=== PATIENT | female | born 1990 | race Caucasian/White ===

== ENCOUNTER 2017-01-02 15:29 | Inpatient (IN) | payer OTHER ==
[2017-01-02 18:02] LABS: Hematocrit 36 % (35-47); Hemoglobin 11.7 g/dl (12.0-16.0); Mean Corpuscular HGB Conc 33 g/dl (31-36); Mean Corpuscular Hemoglobin 29 pg (27-31); Mean Corpuscular Volume 87 fL (80-97); Mean Platelet Volume 9 um3 (7.4-10.4); Red Cell Distribution Width 14 % (10.5-15); White Blood Count 22.6 10^3/ul (3.5-10.8)
[2017-01-02] MEDS: Calcium Carbonate CHEW TAB* 500 MG (TUMS) PO PRN (21:32)
[2017-01-02] MEDS ORDERED: Oxytocin in LR* 20 UNITS/1,000 ML BAG IVPB SCH (22:00)
[2017-01-02 22:28] LABS: Albumin 3.2 g/dL (3.2-5.2); BUN/Creatinine Ratio 11.7 (8-20); Calcium 9.7 mg/dL (8.6-10.3); EGFR African American 155.4 (>60); EGFR Non-African American 120.8 (>60); Globulin 2.5 g/dL (2-4); Potassium 4.1 mmol/L (3.5-5.0); Total Bilirubin 0.3 mg/dL (0.2-1.0); Total Protein 5.7 g/dL (6.4-8.9)
[2017-01-02] MEDS ORDERED: OBEPIDURAL* 250 ML ONE (22:44)
[2017-01-02] MEDS ORDERED: Sodium Citrate/Citric Acid* 15 ML UDC PO PRN (23:36)
[2017-01-02] MEDS ORDERED: Phenylephrine IV* 40 MCG/ML 10 ML SYRINGE IV PUSH PRN (23:36)
[2017-01-02] MEDS ORDERED: Famotidine TAB* 20 MG PO PRN (23:36)
[2017-01-02] MEDS ORDERED: OBEPIDURAL* 250 ML EPIDURAL SCH (23:45)
[2017-01-03] MEDS ORDERED: Acetaminophen TAB* 325 MG PO PRN (02:41)
[2017-01-03] MEDS ORDERED: Dibucaine 1% 28.35 GM TUBE PR PRN (02:41)
[2017-01-03] MEDS ORDERED: Glycerin ADULT SUPP PR PRN (02:41)
[2017-01-03] MEDS ORDERED: Witch Hazel PAD* JAR TOPICAL PRN (02:41)
[2017-01-03] MEDS ORDERED: Oxytocin in LR* 20 UNITS/1,000 ML BAG IVPB SCH (03:00)
[2017-01-03] MEDS: Ibuprofen TAB* 600 MG PO PRN ×3 (03:44→23:07)
[2017-01-03] MEDS: Docusate CAP* 100 MG PO SCH ×3 (08:44→22:02)
[2017-01-03] MEDS: Simethicone CHEW TAB* 80 MG PO SCH ×3 (08:44→20:35)
[2017-01-03] MEDS ORDERED: Varicella Virus Vaccine Live* 0.5 ML VIAL SUBCUT ONE (09:00)
--- NOTE | 2017-01-03 21:52 | PTEDU ---
Patient Name: ELAINA MANDUJANO ELAINA MANDUJANO selected video: Never Ever Shake a Baby to view on 01/03/2017 at 9:51:30 PM from [facility] [place] [id number]
[2017-01-03] MEDS: Calcium Carbonate CHEW TAB* 500 MG (TUMS) PO PRN (23:07)
[2017-01-04 08:29] LABS: Hematocrit 35 % (35-47); Hemoglobin 11.7 g/dl (12.0-16.0); Mean Corpuscular HGB Conc 33 g/dl (31-36); Mean Corpuscular Hemoglobin 29 pg (27-31); Mean Corpuscular Volume 88 fL (80-97); Mean Platelet Volume 9 um3 (7.4-10.4); Red Blood Count 4.04 10^6/ul (4.0-5.4); Red Cell Distribution Width 14 % (10.5-15); White Blood Count 18.5 10^3/ul (3.5-10.8)
[2017-01-04] MEDS ORDERED: Ferrous Gluconate TAB* 324 MG TAB PO SCH (09:00)
[2017-01-04] MEDS: Docusate CAP* 100 MG PO SCH ×2 (09:00→14:00)
[2017-01-04 11:48] LABS: BUN/Creatinine Ratio 17.5 (8-20); Calcium 9.4 mg/dL (8.6-10.3); EGFR African American 146.9 (>60); EGFR Non-African American 114.2 (>60); Globulin 3.1 g/dL (2-4); Potassium 4.3 mmol/L (3.5-5.0); Total Bilirubin 0.2 mg/dL (0.2-1.0); Total Protein 6.1 g/dL (6.4-8.9)
[2017-01-04 12:10] VITALS: BP 130/81
[2017-01-04] MEDS: Ibuprofen TAB* 600 MG PO PRN (13:46)
== END 2017-01-04 16:23 | disposition home or self-care (01) | DRG 560 ==
LOC: MCHOBOUT 15:29 → MCHOB 15:56
PROVIDERS: ADMIT Midwife; ATTEND Midwife
PROC: 10E0XZZ Delivery of Products of Conception, External Approach (ICD-10-PCS; principal; 2017-01-03)
DX: O14.94 Unspecified pre-eclampsia, complicating childbirth (principal); O99.344 Other mental disorders complicating childbirth; F32.9 Major depressive disorder, single episode, unspecified; O99.334 Smoking (tobacco) complicating childbirth; F17.210 Nicotine dependence, cigarettes, uncomplicated; Z3A.38 38 weeks gestation of pregnancy; Z37.0 Single live birth
CPT/HCPCS: 36415; 80053; 85025; 86850; 86900; 86901; A9270-GY

== ENCOUNTER 2018-06-26 09:49 | Emergency (ER) | payer OTHER ==
[2018-06-26] MEDS ORDERED: Dexamethasone IV* 4 MG/ML 1 ML (4 MG) IV SLOW PU ONE (10:17)
[2018-06-26] MEDS ORDERED: NS 0.9% 1000 ML* 1,000 ML IV ONE (10:17)
[2018-06-26] MEDS ORDERED: diPHENhydraMINE IV* 25 MG in NS 0.9% 50 ML* 50 ML IVPB ONE (10:17)
[2018-06-26] MEDS ORDERED: PROCHLORPERAZINE INJ 5 MG/ML 2 ML VIAL IV ONE (10:18)
--- NOTE | 2018-06-26 10:22 | ED ---
Headache - HPI Summary HPI Summary: Pt. is a 28 y.o female who presents to the ER for a h/a that started when she woke up early this morning. Pt. states is progressively got worse through the day. Pt. states she has a hx of migraines but h/a today is worse and different than normal. Pt. feels this is the worst h/a of her life. Associated sxs of N/V , photophobia. She denies recent illness, fever, neck pain. Symptoms are moderate in severity. Lights and noise make sxs worse. Nothing makes sxs better. Denies injury. Currently taking propranolol and Lexapro. - History Of Current Complaint Chief Complaint: EDHeadache Stated Complaint: MIGRAINE Time Seen by Provider: 06/26/18 10:08 Hx Obtained From: Patient - Allergies/Home Medications Allergies/Adverse Reactions: Allergies Allergy/AdvReac Type Severity Reaction Status Date / Time No Known Allergies Allergy Verified 01/02/17 16:01 Home Medications: Home Medications Escitalopram (NF) [Lexapro 20 mg (NF)] 20 mg PO DAILY 06/26/18 [History Confirmed 06/26/18] Propranolol TAB* [Inderal TAB*] 20 mg PO BID 06/26/18 [History Confirmed ] PMH/Surg Hx/FS Hx/Imm Hx Previously Healthy: Yes Cardiovascular History: Reports: Hx Hypertension Infectious Disease History: No Infectious Disease History: Denies: Traveled Outside the [place] in Last 30 Days - Family History Known Family History: Positive: Other - noncontributory - Social History Occupation: Employed Full-time Lives: With Family Alcohol Use: None Substance Use Type: Reports: Marijuana Smoking Status (MU): Heavy Every Day Tobacco Smoker Type: Cigarettes Amount Used/How Often: 1-2 cigarettes/day Have You Smoked in the Last Year: Yes Review of Systems Constitutional: Negative Negative: Fever, Chills Positive: Photophobia ENT: Negative Cardiovascular: Negative Respiratory: Negative Positive: Vomiting, Nausea Musculoskeletal: Negative Skin: Negative Positive: Headache. Negative: Weakness, Paresthesia, Numbness All Other Systems Reviewed And Are Negative: Yes Physical Exam Triage Information Reviewed: Yes Vital Signs On Initial Exam: Initial Vitals Temp Pulse Resp BP Pulse Ox 97.0 F 75 22 136/86 100 06/26/18 09:54 06/26/18 09:54 06/26/18 09:54 10/26/18 09:54 06/26/18 09:54 Vital Signs Reviewed: Yes Appearance: Positive: Pain Distress - Patient sitting up on bed with emesis bag in her hand. Appears uncomfortable but nontoxic. Significant other present. Eyes: Positive: Normal, EOMI, JUANI, Conjunctiva Clear Neck: Positive: Supple, Nontender. Negative: Nuchal Rigidity Respiratory/Lung Sounds: Positive: Clear to Auscultation, Breath Sounds Present Cardiovascular: Positive: Normal, RRR Musculoskeletal: Positive: Normal, Strength/ROM Intact Neurological: Positive: Normal, CN Intact II-III Psychiatric: Positive: Affect/Mood Appropriate - Michael Coma Scale Best Eye Response: 4 - Spontaneous Best Motor Response: 6 - Obeys Commands Best Verbal Response: 5 - Oriented Coma Scale Total: 15 Diagnostics - Vital Signs Vital Signs Temp Pulse Resp BP Pulse Ox 06/26/18 10:04 92 100 06/26/18 09:54 97.0 F 81 22 136/86 100 - Laboratory Lab Statement: Any lab studies that have been ordered have been reviewed, and results considered in the medical decision making process. Headache Course/Dx - Course Course Of Treatment: Patient presenting with worsening migraine headache. Patient states headache today is different and worse than her typical headaches. She is vomiting and has photophobia. He is afebrile with stable vital signs. She is no neurological deficits on exam. Given changing and headache we'll obtain CT scan. Additionally given IV fluids, Compazine, Benadryl and Decadron in the meantime. CT scan is negative for acute findings, reading per radiology. Patient is feeling better and is requesting to leave the ER. She took her IV out herself. Patient standing in the hallway and feels better. Discharged home. Follow-up with neurology as scheduled. We'll return to the ear symptoms change or worsen. - Diagnoses Differential Diagnosis/HQI/PQRI: Subdural Hematoma, Meningitis, Migraine, Sinus Headache, Tension Headache Provider Diagnoses: Cephalalgia Discharge - Sign-Out/Discharge Documenting (check all that apply): Patient Departure - Discharge Plan Condition: Good Disposition: HOME Patient Education Materials: Migraine Headache (ED) Referrals: Foster Anderson PA [Primary Care Provider] - Additional Instructions: Follow up with PCP and neurology as scheduled Return to ER if symptoms change or worsen - Billing Disposition and Condition Condition: GOOD Disposition: Home
[2018-06-26] MEDS ORDERED: Dexamethasone IV* 4 MG/ML 1 ML (4 MG) ONE (11:18)
[2018-06-26] MEDS ORDERED: diPHENhydraMINE PO* 25 MG PO ONE ×3 (11:28→12:00)
[2018-06-26] MEDS ORDERED: diPHENhydraMINE PO* 25 MG ONE (11:29)
--- NOTE | 2018-06-26 11:59 | RAD ---
HISTORY: h/a COMPARISONS: None TECHNIQUE: Multiple contiguous axial CT scans were obtained of the head without intravenous contrast. FINDINGS: HEMORRHAGE/INFARCT: There is no hemorrhage or acute infarct. MASSES/SHIFT: There is no mass or shift. EXTRA-AXIAL SPACES: There are no extra-axial fluid collections. SULCI AND VENTRICLES: The sulci and ventricles are normal in size and position for the patient's stated age. CEREBRUM: There are no focal parenchymal abnormalities. BRAINSTEM: There are no focal parenchymal abnormalities. CEREBELLUM: There are no focal parenchymal abnormalities. VESSELS: The vessels are grossly normal. PARANASAL SINUSES: The paranasal sinuses are clear. ORBITS: The orbits are unremarkable. BONES AND SOFT TISSUE: No bone or soft tissue abnormalities are noted. OTHER: None IMPRESSION: NO ACUTE INTRACRANIAL PATHOLOGY.
[2018-06-26 12:49] VITALS: BP 0/0
== END 2018-06-26 12:48 | disposition home or self-care (01) ==
LOC: ED 09:49
DX: R51 Headache (principal); R11.10 Vomiting, unspecified; H53.149 Visual discomfort, unspecified; I10 Essential (primary) hypertension; F17.210 Nicotine dependence, cigarettes, uncomplicated
CPT/HCPCS: 70450; 96374; 96375; 99282; A9270-GY; J0780; J1100

== ENCOUNTER 2018-08-05 12:11 | Emergency (ER) | payer OTHER ==
[2018-08-05] MEDS ORDERED: Ketorolac INJ* 30 MG/ML 1 ML VIAL IV PUSH ONE (12:27)
--- NOTE | 2018-08-05 12:46 | ED ---
GI/ HPI - HPI Summary HPI Summary: Patient is a 28 y/o F presenting to ED with complaints of left flank pain. She states that she was diagnosed with UTI two days ago and that she was advised to come to ED to be evaluated for possible kidney stone. However, she states home circumstances prevented this. Patient arrives today noting increased left flank pain and nausea. She denies vomiting. Pain is characterized as spasms. PMHx of kidney stone x1 is reported. Patient states that pain with previous kidney stone was more intense than her present pain. She states there is a chance she is . PMHx of kidney infection seven years ago, PSHx is denied. Patient is a current smoker. FMHx of HTN. Patient is on BP meds for migraines, has anxiety medication. On RN reassessment, pain is rated 8/10, movement and palpation is noted to aggravate Sx. Home medications and allergies are reviewed. - History of Current Complaint Chief Complaint: EDUrogenitalProblems Time Seen by Provider: 08/05/18 12:13 Stated Complaint: LEFT FLANK PAIN Hx Obtained From: Patient Onset/Duration: Still Present, Worse Since Timing: Constant Severity: Moderate Current Severity: Severe - 8/10 Pain Intensity: 8 Location of Pain: Flank - left Pain Characteristics: Other: - spasms Associated Signs and Symptoms: Positive: Nausea. Negative: Vomiting Aggravating Factor(s): Palpation, Movement Alleviating Factor(s): Nothing - Allergy/Home Medications Allergies/Adverse Reactions: Allergies Allergy/AdvReac Type Severity Reaction Status Date / Time No Known Allergies Allergy Verified 01/02/17 16:01 Home Medications: Home Medications Cyclobenzaprine TAB* [Flexeril 10 MG TAB*] 10 mg PO TID PRN 08/05/18 [History Confirmed 08/05/18] Escitalopram (NF) [Lexapro 10 mg (NF)] 10 mg PO DAILY 08/05/18 [History Confirmed 08/05/18] Ibuprofen TAB* [Motrin TAB* 800 MG] 800 mg PO Q6H PRN 08/05/18 [History Confirmed 08/05/18] Propranolol TAB* [Inderal TAB*] 20 mg PO DAILY 08/05/18 [History Confirmed 08/05] PMH/Surg Hx/FS Hx/Imm Hx Cardiovascular History: Reports: Hx Hypertension History: Reports: Hx Kidney Infection, Hx Kidney Stones Sensory History: Denies: Hx Legally Blind, Hx Deafness Opthamlomology History: Denies: Hx Legally Blind EENT History: Denies: Hx Deafness Neurological History: Reports: Hx Migraine Psychiatric History: Reports: Hx Anxiety - Immunization History Immunizations Up to Date: Yes Infectious Disease History: No Infectious Disease History: Denies: Traveled Outside the [place] in Last 30 Days - Family History Known Family History: Positive: Hypertension - Social History Alcohol Use: None Substance Use Type: Reports: Marijuana Smoking Status (MU): Heavy Every Day Tobacco Smoker Type: Cigarettes Amount Used/How Often: 1-2 cigarettes/day Have You Smoked in the Last Year: Yes Review of Systems Negative: Fever - on vitals, temp is 98 F Positive: Abdominal Pain, Nausea. Negative: Vomiting All Other Systems Reviewed And Are Negative: Yes Physical Exam - Summary Physical Exam Summary: VITAL SIGNS: Reviewed. GENERAL: Patient is a well-developed and nourished female who is lying comfortable in the stretcher. Patient is not in any acute respiratory distress. Left CVA tenderness HEAD AND FACE: No signs of trauma. No ecchymosis, hematomas or skull depressions. No sinus tenderness. EYES: PERRLA, EOMI x 2, No injected conjunctiva, no nystagmus. EARS: Hearing grossly intact. Ear canals and tympanic membranes are within normal limits. MOUTH: Oropharynx within normal limits. NECK: Supple, trachea is midline, no adenopathy, no JVD, no carotid bruit, no c- spine tenderness, neck with full ROM. CHEST: Symmetric, no tenderness at palpation LUNGS: Clear to auscultation bilaterally. No wheezing or crackles. CVS: Regular rate and rhythm, S1 and S2 present, no murmurs or gallops appreciated. ABDOMEN: Soft, non-tender. No signs of distention. No rebound no guarding, and no masses palpated. Bowel sounds are normal. EXTREMITIES: FROM in all major joints, no edema, no cyanosis or clubbing. NEURO: Alert and oriented x 3. No acute neurological deficits. Speech is normal and follows commands. SKIN: Dry and warm Triage Information Reviewed: Yes Vital Signs On Initial Exam: Initial Vitals Temp Pulse Resp BP Pulse Ox 98 F 109 20 151/79 100 08/05/18 12:14 08/05/18 12:14 08/05/18 12:14 08/05/18 12:14 08/05/18 12:14 Vital Signs Reviewed: Yes Diagnostics - Vital Signs Vital Signs Temp Pulse Resp BP Pulse Ox 08/05/18 12:14 98 F 109 20 151/79 100 - Laboratory Result Diagrams: 08/05/18 12:46 08/05/18 12:46 Lab Statement: Any lab studies that have been ordered have been reviewed, and results considered in the medical decision making process. - CT abd/pel ct CT Interpretation Completed By: Radiologist Summary of CT Findings: IMPRESSION: #. Negative for urolithiasis or hydronephrosis. THIS REPORT WAS REVIEWED BY ED PHYSICIAN. Re-Evaluation - Re-Evaluation First Eval Re-Evaluation Time: 15:30 Change: Improved Comment: At this point the patient is feeling better therefore the patient will be discharged home with follow-up with primary care physician. We will send the urine for cultures. I discussed all the findings and test results with the patient. Patient was instructed to return to the emergency room immediately if any of the symptoms return or worsens. Plan of care was discussed with the patient and understands and agrees. All questions were answered at patient satisfaction. There were no further complaints or concerns. Lung exam before discharge: CTA B/L. Good air exchange. No wheezing or crackles heard. CVS: S1 and S2 present. No murmurs appreciated. Patient is alert and oriented x 3. Patient is hemodynamically stable. Patient will be discharged home with follow up PCP in the next 2-3 days GIGU Course/Dx - Course Assessment/Plan: Patient is a 28 y/o F presenting to ED with complaints of left flank pain. She states that she was diagnosed with UTI two days ago and that she was advised to come to ED to be evaluated for possible kidney stone. However , she states home circumstances prevented this. Patient arrives today noting increased left flank pain and nausea. She denies vomiting. Pain is characterized as spasms. PMHx of kidney stone x1 is reported. Patient states that pain with previous kidney stone was more intense than her present pain. She states there is a chance she is . PMHx of kidney infection seven years ago, PSHx is denied. Patient is a current smoker. FMHx of HTN. Patient is on BP meds for migraines, has anxiety medication. On RN reassessment, pain is rated 8/10, movement and palpation is noted to aggravate Sx. Home medications and allergies are reviewed. Blood tests without any significant abnormality except for glucose of 105, test is negative, urinalysis is contaminated but possibility UTI. Therefore the patient was given morphine and Toradol for the pain and she was given Bactrim for the UTI. Patient reports that in the past ciprofloxacin doesnt work for her UTIs. ABD/PEL IMPRESSION: #. Negative for urolithiasis or hydronephrosis. At this point the patient is feeling better therefore the patient will be discharged home with follow-up with primary care physician. We will send the urine for cultures. I discussed all the findings and test results with the patient. Patient was instructed to return to the emergency room immediately if any of the symptoms return or worsens. Plan of care was discussed with the patient and understands and agrees. All questions were answered at patient satisfaction. There were no further complaints or concerns. Lung exam before discharge: CTA B/L. Good air exchange. No wheezing or crackles heard. CVS: S1 and S2 present. No murmurs appreciated. Patient is alert and oriented x 3. Patient is hemodynamically stable. Patient will be discharged home with follow up PCP in the next 2-3 days - Diagnoses Provider Diagnoses: UTI (urinary tract infection) Discharge - Sign-Out/Discharge Documenting (check all that apply): Patient Departure - discharge - Discharge Plan Condition: Stable Disposition: HOME Prescriptions: Sulfamethox/Trimethoprim DS* [Bactrim DS 800/160 TAB*] 1 tab PO BID #14 tab traMADol TAB* [Ultram*] 25 mg PO Q6HR PRN #8 tab MDD 4 PRN Reason: Pain Patient Education Materials: Urinary Tract Infection in Women (ED) Referrals: Foster Anderson PA [Primary Care Provider] - 3 Days Additional Instructions: RETURN TO ED FOR NEW OR WORSENING SYMPTOMS. FOLLOW UP WITH YOUR PRIMARY CARE PHYSICIAN IN 2-3 DAYS. - Billing Disposition and Condition Condition: STABLE Disposition: Home - Attestation Statements Document Initiated by Scribe: Yes Documenting Scribe: OLIVER GASTON Provider For Whom Scribe is Documenting (Include Credential): SAMI AUGUSTINE MD Scribe Attestation: OLIVER Coffey , scribed for SAMI AUGUSTINE MD on 08/06/18 at 2157. Scribe Documentation Reviewed: Yes Provider Attestation: The documentation as recorded by the scribe, OLIVER GASTON accurately reflects the service I personally performed and the decisions made by me, SAMI AUGUSTINE MD Status of Scribe Document: Viewed
--- OUTSIDE RECORDS SUMMARY | 2018-08-05 12:49 | XMS REPORT ---
:1990 Author Organization [facility] Address [address] [place] [address] Care Team Providers Name Role Phone Foster Anderson Unavailable Unavailable PROBLEMS Type Condition ICD9-CM Code EPE66-LX Code Onset Condition SNOMED Code Dates Status Problem BMI Z68.34 Active 879874865 34.0-34.9,adult Problem Migraine without G43.009 Active 427347123 aura and without status migrainosus, not intractable Problem Irregular menses N92.6 Active 42765060 Problem Anxiety F41.9 Active 67246385 Problem Other obesity due E66.09 Active 619924935 to excess calories Problem Nicotine F17.200 Active 174682475 dependence, unspecified, uncomplicated ALLERGIES No Information ENCOUNTERS Encounter Location Date Diagnosis [place] [facility] [address] [place], [place] [address] [place] [facility] [address] [place], [place] [address] [place] [facility] [address] [place], [place], [place]xiety F41.9 [place] [address] [place] [facility] [address] [place], [place], [place] F41.9 [place] [address] [place] [facility] [address] [place], [place] [address] [place] [facility] [address] [place], [place] [address] [place] [facility] [address] [place], [place], [place] F41.9 [place] [address] [place] [facility] [address] [place], [place] [address] [place] [facility] [address] [place], [place] [address] [place] [facility] [address] [place], [place] [address] [place], [place], Anxiety F41.9 ; [place] [address] dependence, unspecified, uncomplicated F17.200 ; Tobacco abuse counseling Z71.6 ; Migraine without aura and without status migrainosus, not intractable G43.009 ; Routine screening for STI (sexually transmitted infection) Z11.3 and BCP ( control pills) initiation Z30.[address], [place], Anxiety F41.9 ; [place] [address] dependence, unspecified, uncomplicated F17.200 and Tobacco abuse counseling Z71.[address] [place], [place] [address] [place] [address] Jan, [place] [address], [place] [address], [place] [address], Oct, [place] [address] without status migrainosus, not intractable G43.009 ; Anxiety F41.9 ; Nicotine dependence, unspecified, uncomplicated F17.200 ; Other obesity due to excess calories E66.09 and Body mass index (BMI) of 38.0-38.9 in adult Z68.[address], Oct, [place] [address] without status migrainosus, not intractable G43.[address], Aug, Anxiety F41.9 ; [place] [address] dependence, unspecified, uncomplicated F17.200 ; Irregular menses N92.6 ; Other obesity due to excess calories E66.09 and Body mass index (BMI) of 34.0-34.9 in adult Z68.[address] [place], [place] [address], Jul, Anxiety F41.9 ; [place] [address] abuse Z72.0 and Irregular menses N92.[address], [place] [address], Jun, Anxiety F41.9 [place] [address] abuse Z72.0 [place] [facility] [address] [place], [place] [address] [place] [facility] [address] [place], [place] [address] [place] [facility] [address] [place] [address] [place] [facility] [address] [place] [address] [place] [facility] [address] [place] [address] [place] [facility] [address] [place] [address] [place] [facility] [address] [place] [address] [place] [facility] [address] [place] [address] [place] [facility] [address] [place] [address] [place] [facility] [address] [place] [address] [place] [facility] [address] [place] [address] [place] [facility] [address] [place] [address] [place] [facility] [address] [place] [address] [place] [facility] [address] [place], [place] [address] [place] [facility] [address] [place], [place] [address] [place] [facility] [address] [place], [place], Pul[place]itis K04.[place] [address] [place] [facility] [address] [place], [place] [address] [place] [facility] [address] [place], [place], 2015 [place] [address] [place] [facility] [address] [place], [place] [address] [place] [facility] [address] [place], [place] [address] [place] [facility] [address] [place], [place], [place]04[place] [address] [facility] [address], [place] [address] [place] [facility] [address] [place], [place] [address] [place] [facility] [address] [place] [address] [place] [address] [place] [address] [place] [address] [place], [place] [address] [place] [address] [place], [place], Ne[place] 723.1 [place] [address] [place] [facility] [address] [place] [address] [place], [place], [place] 723.1 [place] [address] [place] [address] [place], [place] [address] [place] [address] [place], [place] [address] [place] [address] [place], Apr, Neck pain 723.1 ; [place] [address] Depression with anxiety 300.4 ; Tobacco use 305.1 and Left shoulder pain 719.[address] [place] [address] [place], [place], [place] [address] 300.4 and Tobacco use 305.[address] [place] [address] [place], [place] [address] Facilitated Enrollment - UNKNOWN [place] [address] [place], [place], [place] 305.1 [place] [address] [place] [address] [place], [place] [address] [place] [address] [place], [place] [address] IMMUNIZATIONS No Known Immunizations SOCIAL HISTORY Never Assessed REASON FOR REFERRAL FUNCTIONAL STATUS PLAN OF CARE VITAL SIGNS MEDICATIONS Unknown Medications PROCEDURES No Known procedures RESULTS No Results REASON FOR VISIT 1st no show Insurance Providers [facility] Patient Patient Patient Patient Patient Subscriber Subscriber Subscriber Group Insurance Plan Plan Plan Plan ID Relationship Address Phone Name Date of ID Name Date of No Type Insurance Insurance Insurance Coverage to Subscriber Address Phone Name Dates Oscar [phone] [place] self Janet [id number] Medicaid [facility] 47 Medicaid h [facility] [id number] Medical Medicaid [id number] [phone] Medicaid self Janet [id number] [facility] [address] Wrap [address] [place] [address] [place] [phone] [place] self Janet [id number] Medicaid [id number] Medicaid h [facility] [place] [address] [employer] Blue [phone] Blue self Janet [id number] Choice Opt 9255 Attn 83 Choice Opt h Anil KERR [id number] [place] [id number] [place] [facility] [place] [facility] [place] [facility] [address] Blue [phone] Blue self Janet [id number] Choice Opt [id number] 89 Choice Opt h Anil 6 Medical [place] Medical [address] Service [phone] Service self Janet [id number] Emp [id number] 13 Emp h [place] 4 Benefit [employer] [place] [address] Dental Case [phone] Case self Janet [id number] Management [place] 02 Management h [facility] [id number] [place] [address] MEDICAL (GENERAL) HISTORY Type Description Date Medical History essential tremors since she was 17 years old Medical History migraines 1-2xmonth Hospitalization History kidney stone Hospitalization History childbirth
--- OUTSIDE RECORDS SUMMARY | 2018-08-05 12:49 | XMS REPORT ---
:1990 Author Organization Formerly [facility] Address [address] [place] [address] Care Team Providers Name Role Phone Foster Anderson Unavailable Unavailable PROBLEMS Type Condition ICD9-CM Code [id number] Code Onset Condition SNOMED Code Dates Status Problem BMI Z68.34 Active 509864890 34.0-34.9,adult Problem Migraine without G43.009 Active 191663576 aura and without status migrainosus, not intractable Problem Irregular menses N92.6 Active 36532855 Problem Anxiety F41.9 Active 68294959 Problem Other obesity due E66.09 Active 581587871 to excess calories Problem Nicotine F17.200 Active 745424271 dependence, unspecified, uncomplicated ALLERGIES No Information ENCOUNTERS Encounter Location Date Diagnosis [place] [facility] [address] [place], [place] [address] [facility] [address] [place], [place] [address] [facility] [place] [facility] [address] [place], Jun, Anxiety F41.9 [place] [address] [place] [place] [facility] [address] [place], [place], [place] F41.9 [place] [address] [place] [facility] [address] [place], [place] [address] [facility] [place] [facility] [address] [place], [place] [address] [facility] [facility] [address] [place], [place], [place]xiety F41.9 [place] [address] [facility] [place] [facility] [address] [place], [place] [address] [place] [facility] [address] [place], [place] [address] [facility] [facility] [address] [place], [place] [address] [place], Apr, Anxiety F41.9 ; [place] [address] dependence, unspecified, uncomplicated F17.200 ; Tobacco abuse counseling Z71.6 ; Migraine without aura and without status migrainosus, not intractable G43.009 ; Routine screening for STI (sexually transmitted infection) Z11.3 and BCP ( control pills) initiation Z30.[address], Apr, Anxiety F41.9 ; [place] [address] dependence, unspecified, uncomplicated F17.200 and Tobacco abuse counseling Z71.[address] Apr, [place] [address] [place] [address] Jan, [place] [address], [place] [address], [place] [address], Oct, [place] [address] without status migrainosus, not intractable G43.009 ; Anxiety F41.9 ; Nicotine dependence, unspecified, uncomplicated F17.200 ; Other obesity due to excess calories E66.09 and Body mass index (BMI) of 38.0-38.9 in adult Z68.[address], Oct, [place] [address] without status migrainosus, not intractable G43.[address], Aug, Anxiety F41.9 ; [place] [address] dependence, unspecified, uncomplicated F17.200 ; Irregular menses N92.6 ; Other obesity due to excess calories E66.09 and Body mass index (BMI) of 34.0-34.9 in adult Z68.[address] [place], [place] [address], Jul, Anxiety F41.9 ; [place] [address] abuse Z72.0 and Irregular menses N92.[address], [place] [address], Jun, Anxiety F41.9 [place] [address] abuse Z72.0 [facility] [place] [facility] [address] [place], [place] [address] [facility] [facility] [address] [place], [place] [address] [place] [facility] [address] [place] [address] [place] [facility] [address] [place] [address] [place] [facility] [address] [place] [address] [place] [facility] [address] [place] [address] [place] [facility] [address] [place] [address] [place] [facility] [address] [place] [address] [place] [facility] [address] [place] [address] [place] [facility] [address] [place] [address] [place] [facility] [address] [place] [address] [place] [facility] [address] [place] [address] [place] [facility] [address] [place] [address] [place] [address] [place], [place] [address] [place] [facility] [address] [place], [place] [address] [place] [facility] [address] [place], Oct, Pul[place] K04.0 [place] [address] [facility] [place] [facility] [address] [place], [place] [address] [place] [facility] [address] [place], Oct, 2015 [place] [address] [place] [address] [place], [place] [address] [place] [facility] [address] [place], [place] [address] [facility] [facility] [address] [place], Oct, [place] K04[place] [address] [facility] [address], [place] [address] [facility] [place] [facility] [address] [place], [place] [address] [place] [facility] [address] [place] [address] [place] [address] [place] [address] [place] [address] [place], [place] [address] [place] [address] [place], Jun, Ne[place] 723.1 [place] [address] [place] [address] [place], Jun, [place] 723.1 [place] [address] [place] [address] [place], [place] [address] [place] [address] [place], [place] [address] [place] [address] [place], Apr, Neck pain 723.1 ; [place] [address] Depression with anxiety 300.4 ; Tobacco use 305.1 and Left shoulder pain 719.41 [place] [address] [place], [place], [place] [address] 300.4 and Tobacco use 305.[address] [place] [address] [place], [place] [address] Facilitated Enrollment - UNKNOWN [place] [address] [place], [place], [place] 305.1 [place] [address] [place] [address] [place], [place] [address] [place] [address] [place], [place] [address] IMMUNIZATIONS No Known Immunizations SOCIAL HISTORY Never Assessed REASON FOR REFERRAL FUNCTIONAL STATUS PLAN OF CARE VITAL SIGNS MEDICATIONS Unknown Medications PROCEDURES No Known procedures RESULTS No Results REASON FOR VISIT [facility] Insurance Providers [facility] Member Patient Patient Patient Patient Patient Subscriber Subscriber Subscriber Group Insurance Plan Plan Plan Plan ID Relationship Address Phone Name Date of ID Name Date of No Type Insurance Insurance Insurance Coverage to Subscriber Address Phone Name Dates Blue [phone] Blue self Janet [id number] Choice Opt [id number] Attn 83 Choice Opt h [place] KERR [id number] Union Claims [id number] Union Hplex [place] [facility] Hplex [place] [facility] [address] Oscar [phone] [place] self Janet [id number] Medicaid [id number] Medicaid [place] [address] [employer] [place] [phone] Oscar self Janet [id number] Medicaid [place] 47 Medicaid h [facility] [address] Medical Blue [phone] Blue self Janet [id number] Choice Opt [id number] Choice Opt h [place] 6 Medical [place] Medical [address] Medicaid [phone] Medicaid self Janet [id number] Wrap [facility] 56 Wrap h [place] [address] Service [phone] Service self Janet [id number] Emp [id number] Emp h [place] 4 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
--- OUTSIDE RECORDS SUMMARY | 2018-08-05 12:49 | XMS REPORT ---
:1990 Author Organization [facility] Care Team Providers Name Role Phone Savi Capellan Unavailable Unavailable PROBLEMS Type Condition ICD9-CM Code NEJ11-FR Code Onset Condition SNOMED Code Dates Status Problem BMI Z68.34 Active 095907731 34.0-34.9,adult Problem Migraine without G43.009 Active 782971677 aura and without status migrainosus, not intractable Problem Irregular menses N92.6 Active 12734356 Problem Anxiety F41.9 Active 37984664 Problem Other obesity due E66.09 Active 281384234 to excess calories Problem Nicotine F17.200 Active 715660209 dependence, unspecified, uncomplicated ALLERGIES No Information ENCOUNTERS Encounter Location Date Diagnosis [place] [facility] [facility] [address] [place], [place] [address] [place] [facility] [address] [place] [address] [place] [facility] [facility] [address] [place], Jun, [place]xiety F41.9 [place] [address] [place] [facility] [facility] [address] [place], [place], [place] F41.9 [place] [address] [place] [facility] [facility] [address] [place], [place] [address] [place] [facility] [facility] [address] [place], [place] [address] [place] [facility] [facility] [address] [place], [place], [place] F41.9 [place] [address] [place] [facility] [facility] [address] [place], [place] [address] [place] [facility] [facility] [address] [place], [place] [address] [place] [facility] [facility] [address] [place], Apr, Anxiety F41.9 ; [place] [address] dependence, unspecified, uncomplicated F17.200 ; Tobacco abuse counseling Z71.6 ; Migraine without aura and without status migrainosus, not intractable G43.009 ; Routine screening for STI (sexually transmitted infection) Z11.3 and BCP ( control pills) initiation Z30.[address] [place], Apr, Anxiety F41.9 ; [place] [address] dependence, unspecified, uncomplicated F17.200 and Tobacco abuse counseling Z71.[address] Apr, [place] [address] [place], [place] [address] [place], [place] [address] [place], [place] [address], [place], [place] [address] without status migrainosus, not intractable G43.009 ; Anxiety F41.9 ; Nicotine dependence, unspecified, uncomplicated F17.200 ; Other obesity due to excess calories E66.09 and Body mass index (BMI) of 38.0-38.9 in adult Z68.[address] [place], [place], [place] [address] without status migrainosus, not intractable G43.[address], Aug, Anxiety F41.9 ; [place] [address] dependence, unspecified, uncomplicated F17.200 ; Irregular menses N92.6 ; Other obesity due to excess calories E66.09 and Body mass index (BMI) of 34.0-34.9 in adult Z68.[address] [place], [place] [address] [place], Jul, Anxiety F41.9 ; [place] [address] abuse Z72.0 and Irregular menses N92.[address] [place], [place] [address] [place], Jun, Anxiety F41.9 [place] [address] abuse Z72.[address] [place], [place] [address] [facility] [facility] [address] [place], [place] [address] [place] [facility] [address] [place] [address] [place] [facility] [address] [place] [address] [place] [facility] [address] [place] [address] [place] [facility] [address] [place] [address] [place] [facility] [address] [place] [address] [place] [facility] [address] [place] [address] [place] [facility] [address] [place] [address] [place] [facility] [address] [place] [address] [facility] [facility] [address] [place] [address] [place] [facility] [address] [place] [address] [place] [facility] [address] [place] [address] [facility] [facility] [address] [place], [place] [address] [facility] [facility] [address] [place], [place] [address] [facility] [facility] [address] [place], [place], [place] K04.0 [place] [address] [facility] [facility] [address] [place], [place] [address] [place] [facility] [facility] [address] [place], [place] [address] [place] [facility] [address] [place], [place] [address] [place] [facility] [address] [place], [place], 2015 [place] [address] [facility] [facility] [address] [place], [place], [place] K04[place]0 [place] [address] [facility] [address], [address] [place] [address] [facility] [facility] [address] [place], [place] [address] [place] [facility] [address] [place] [address] [place] [facility] [address] [place] [address] [facility] [facility] [address] [place], [place] [address] [place], [place], Ne[place] 723.1 [place] [address] [place], [place], [place] 723.1 [place] [address] [place], [place] [address] [place], [place] [address] [place], Apr, Neck pain 723.1 ; [place] [address] Depression with anxiety 300.4 ; Tobacco use 305.1 and Left shoulder pain 719.41 [place] [address] [place], [place], [place] [address] 300.4 and Tobacco use 305.[address] [place], [place] [address] Facilitated Enrollment - UNKNOWN [place], [place] [address] [place], [place], [place] 305.1 [place] [address] [place], [place] [address] [place], [place] [address] IMMUNIZATIONS No Known Immunizations SOCIAL HISTORY Never Assessed REASON FOR REFERRAL FUNCTIONAL STATUS PLAN OF CARE Activity Details Follow Up 3 Weeks Novemebr 8th 5 pm Reason: VITAL SIGNS MEDICATIONS Medication Instructions Dosage Frequency Start End Date Duration Status Date Propranolol HCl Orally Twice a 1 tablet 12h Apr, day(s) Active 20 MG day 2017 Apri 0.15-30 Orally Once a 1 tablet 24h Apr, day(s) Active MG-MCG 2017 Lexapro 20 MG Orally Once a 1 tablet 24h Jun, day(s) Active day 2016 PROCEDURES Procedure Date Ordered Result Body Site Individual Therapy 53+ Min Jun 18, 2018 RESULTS No Results REASON FOR VISIT counseling Insurance Providers [facility] Member Patient Patient Patient Patient Patient Subscriber Subscriber Subscriber Group Insurance Plan Plan Plan Plan ID Relationship Address Phone Name Date of ID Name Date of No Type Insurance Insurance Insurance Coverage to Subscriber Address Phone Name Dates Oscar JONES Garcia [phone] Oscar Gonzales [id number] Medicaid [id number] [place] [address] [employer] Case [phone] Case self Janet [id number] Management [place] 02 Management h [facility] [address] [facility] Blue [phone] Blue self Janet [id number] Choice Opt [id number] Choice Opt h [place] 6 Medical [place] Medical [address] Blue [phone] Blue self Janet [id number] Choice Opt 9255 Attn 83 Choice Opt h [place] -[place] GG457 [place] Claims [id number] [place] Hplex [place] Dept Hplex [place] [facility] [address] Service [phone] Service self Janet [id number] Emp [id number] 13 Emp h [place] 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
--- OUTSIDE RECORDS SUMMARY | 2018-08-05 12:49 | XMS REPORT ---
:1990 Author Organization Replaced By [facility] Address [address] [place] [address] Care Team Providers Name Role Phone Foster Anderson Unavailable Unavailable PROBLEMS Type Condition ICD9-CM Code XAR43-YV Code Onset Condition SNOMED Code Dates Status Problem BMI Z68.34 Active 975494312 34.0-34.9,adult Problem Migraine without G43.009 Active 826139294 aura and without status migrainosus, not intractable Problem Irregular menses N92.6 Active 27237511 Problem Anxiety F41.9 Active 15062166 Problem Other obesity due E66.09 Active 969179237 to excess calories Problem Nicotine F17.200 Active 907899058 dependence, unspecified, uncomplicated ALLERGIES No Information ENCOUNTERS Encounter Location Date Diagnosis [place] [facility] [address] [place], [place] [address] [place] [facility] [address] [place], [place] [address] [place] [facility] [address] [place], Jun, [place]xiety F41.9 [place] [address] [place] [facility] [address] [place], [place], [place] F41.9 [place] [address] [place] [facility] [address] [place], [place] [address] [place] [facility] [address] [place], [place] [address] [place] [facility] [address] [place], [place], [place] F41.9 [place] [address] [place] [facility] [address] [place], [place] [address] [place] [facility] [address] [place], [place] [address] [place] [facility] [address] [place], [place] [address] [place], Apr, Anxiety F41.9 ; [place] [address] dependence, unspecified, uncomplicated F17.200 ; Tobacco abuse counseling Z71.6 ; Migraine without aura and without status migrainosus, not intractable G43.009 ; Routine screening for STI (sexually transmitted infection) Z11.3 and BCP ( control pills) initiation Z30.[address], Apr, Anxiety F41.9 ; [place] [address] dependence, unspecified, uncomplicated F17.200 and Tobacco abuse counseling Z71.[address] Apr, [place] [address] [place] [address] Jan, [place] [address], [place] [address], [place] [address], Oct, [place] [address] without status migrainosus, not intractable G43.009 ; Anxiety F41.9 ; Nicotine dependence, unspecified, uncomplicated F17.200 ; Other obesity due to excess calories E66.09 and Body mass index (BMI) of 38.0-38.9 in adult Z68.[address], Oct, [place] [address] without status migrainosus, not intractable G43.[address], Aug, Anxiety F41.9 ; [place] [address] dependence, unspecified, uncomplicated F17.200 ; Irregular menses N92.6 ; Other obesity due to excess calories E66.09 and Body mass index (BMI) of 34.0-34.9 in adult Z68.[address] [place], [place] [address], Jul, Anxiety F41.9 ; [place] [address] abuse Z72.0 and Irregular menses N92.[address], [place] [address], Jun, Anxiety F41.9 [place] [address] abuse Z72.0 [place] [facility] [address] [place], [place] [address] [place] [facility] [address] [place], [place] [address] [place] [facility] [address] [place] [address] [place] [facility] [address] [place] [address] [place] [facility] [address] [place] [address] [place] [facility] [address] [place] [address] [place] [facility] [address] [place] [address] [place] [facility] [address] [place] [address] [place] [facility] [address] [place] [address] [place] [facility] [address] [place] [address] [place] [facility] [address] [place] [address] [place] [facility] [address] [place] [address] [place] [facility] [address] [place] [address] [place] [facility] [address] [place], [place] [address] [place] [facility] [address] [place], [place] [address] [place] [facility] [address] [place], Oct, Pul[place] K04.[place] [address] [place] [facility] [address] [place], [place] [address] [place] [facility] [address] [place], Oct, 2015 [place] [address] [place] [facility] [address] [place], [place] [address] [place] [facility] [address] [place], [place] [address] [place] [facility] [address] [place], Oct, [place] K04[place] [address] Count Includes [facility] [address], [place] [address] [place] [facility] [address] [place], [place] [address] [place] [facility] [address] [place] [address] [place] [address] [place], [place] [address] [place] [address] [place], [place] [address] [place] [address] [place], Jun, Ne[place] 723.1 [place] [address] [place] [address] [place], Jun, [place] 723.1 [place] [address] [place] [address] [place], [place] [address] [place] [address] [place], [place] [address] [place] [address] [place], Apr, Neck pain 723.1 ; [place] [address] Depression with anxiety 300.4 ; Tobacco use 305.1 and Left shoulder pain 719.[address] [place] [address] [place], [place], [place] [address] 300.4 and Tobacco use 305.[address] [place] [address] [place], [place] [address] Facilitated Enrollment - UNKNOWN [place], [place] [address] [place], [place], [place] 305.1 [place] [address] [place] [address] [place], [place] [address] [place], [place] [address] IMMUNIZATIONS No Known Immunizations SOCIAL HISTORY Never Assessed REASON FOR REFERRAL FUNCTIONAL STATUS PLAN OF CARE VITAL SIGNS MEDICATIONS Unknown Medications PROCEDURES No Known procedures RESULTS No Results REASON FOR VISIT No show 1 Insurance Providers [facility] Member Patient Patient Patient Patient Patient Subscriber Subscriber Subscriber Group Insurance Plan Plan Plan Plan ID Relationship Address Phone Name Date of ID Name Date of No Type Insurance Insurance Insurance Coverage to Subscriber Address Phone Name Dates Oscar [phone] self Janet [id number] Medicaid [id number] Medicaid [place] [id number] [employer] Service [phone] Service self Janet [id number] Emp h Anil 4 Benefit 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 [address] Dental Case [phone] Case self Janet [id number] Management [place] 02 Management h [facility] [address] [facility] [address] [phone] self Janet [id number] Medicaid [place] 47 Medicaid h [facility] [address] Medical Blue [phone] Blue self Janet [id number] Choice Opt [phone] [address] 83 Choice Opt h [facility] [id number] Sunflower Claims [id number] Sunflower Hplex [facility] [facility] Hplex [facility] [address] Blue [phone] Blue self Janet [id number] Choice Opt [id number] Choice Opt h An[place] 6 Medical [facility] [address] Medicaid [phone] Medicaid self Janet [id number] Wrap [facility] 56 Wrap h [place] [id number] MEDICAL (GENERAL) HISTORY Type Description Date Medical History essential tremors since she was 17 years old Medical History migraines 1-2xmonth Hospitalization History kidney stone Hospitalization History childbirth
[2018-08-05 13:01] LABS: ABS Basophils 0 10^3/ul (0-0.2); ABS Eosinophils 0.1 10^3/ul (0-0.6); ABS Lymphocytes 2.9 10^3/ul (1.0-4.8); ABS Monocytes 0.8 10^3/ul (0-0.8); ABS Neutrophils 6.5 10^3/ul (1.5-7.7); ABS Nucleated RBC 0 10^3/ul; Eosinophil % 0.7 %; Hematocrit 45 % (35-47); Hemoglobin 15.2 g/dl (12.0-16.0); Lymphocyte % 28.4 %; Mean Corpuscular HGB Conc 34 g/dl (31-36); Mean Corpuscular Hemoglobin 30 pg (27-31); Mean Corpuscular Volume 89 fL (80-97); Mean Platelet Volume 8.2 fL (7.4-10.4); Nucleated Red Blood Cells % 0.1; Platelet Count 305 10^3/ul (150-450); Red Blood Count 5.01 10^6/ul (4.00-5.40); Red Cell Distribution Width 14 % (10.5-15); White Blood Count 10.4 10^3/ul (3.5-10.8)
[2018-08-05 13:31] LABS: EGFR Non-African American 86.7 (>60)
[2018-08-05 14:46] LABS: Urine Appearance Clear; Urine Blood 1+ (Negative); Urine Color Yellow; Urine Ketones Negative (Negative); Urine Protein Negative (Negative); Urine Red Blood Cell 3+(>10/hpf) (Absent); Urine Specific Gravity 1.021 (1.010-1.030); Urine Urobilinogen Negative (Negative); Urine White Blood Cell 2+(11-20/hpf) (Absent)
[2018-08-05] MEDS ORDERED: Morphine VIAL* 4 MG/ML VIAL (1 ml vial) IV ONE (15:32)
[2018-08-05] MEDS ORDERED: Sulfamethox/Trimethoprim DS 800/160* TAB PO ONE (15:32)
[2018-08-05 16:25] VITALS: BP 136/84
== END 2018-08-05 16:22 | disposition home or self-care (01) ==
LOC: ED 12:11
DX: N39.0 Urinary tract infection, site not specified (principal); I10 Essential (primary) hypertension; F17.210 Nicotine dependence, cigarettes, uncomplicated
CPT/HCPCS: 36415; 74176; 80053; 81003; 81015; 83605; 83690; 84702; 85025; 86140; 87086; 96374; 96375; 99283; A9270-GY; J1885; J2270

== ENCOUNTER 2019-02-21 08:30 | Emergency (ER) | payer OTHER ==
[2019-02-21] MEDS ORDERED: NS 0.9% 1000 ML** 1,000 ML IV ONE (08:53)
[2019-02-21] MEDS ORDERED: Morphine 4 MG/ML VIAL (1 ml) 4 MG/ML VIAL IV ONE (08:54)
[2019-02-21] MEDS ORDERED: Ondansetron INJ* 2 MG/ML VIAL IV ONE (08:54)
--- NOTE | 2019-02-21 09:01 | ED ---
Abdominal Pain/Female - HPI Summary HPI Summary: A 28 y/o female presents to [facility] with a chief complaint of RLQ pain since 17: 00 02/21/19. She also c/o nausea, diarrhea, chills, nausea, lack of appetite, and pain radiating to her back per triage note. She denies any vaginal bleeding or spotting. At triage she rated her pain as an 8/10 in severity. She claims that coughing and walking aggravates her pain. She denies any Hx of ovarian cysts, denies a SHx, and claims that her children were born through vaginal delivery. She smokes 1 ppd. - History of Current Complaint Chief Complaint: EDAbdPain Stated Complaint: RIGHT ABD PAIN PER PT Time Seen by Provider: 02/21/19 08:45 Hx Obtained From: Patient Onset/Duration: Sudden Onset, Lasting Hours, Still Present Timing: Hours Severity Initially: Severe Severity Currently: Severe Pain Intensity: 8 Pain Scale Used: 0-10 Numeric Location: Discrete At: RLQ Radiates: Yes Radiates to: Back Character: Other: - unable to describe Aggravating Factor(s): Other: - coughing and walking Alleviating Factor(s): Nothing Associated Signs and Symptoms: Positive: Back Pain, Nausea, Diarrhea. Negative : Fever Allergies/Adverse Reactions: Allergies Allergy/AdvReac Type Severity Reaction Status Date / Time No Known Allergies Allergy Verified 02/21/19 08:34 Home Medications: Home Medications NK [No Home Medications Reported] 02/21/19 [History Confirmed 02/21/19] PMH/Surg Hx/FS Hx/Imm Hx Cardiovascular History: Reports: Hx Hypertension History: Reports: Hx Kidney Infection, Hx Kidney Stones Sensory History: Denies: Hx Legally Blind, Hx Deafness Opthamlomology History: Denies: Hx Legally Blind Neurological History: Reports: Hx Migraine Psychiatric History: Reports: Hx Anxiety Infectious Disease History: No Infectious Disease History: Denies: Traveled Outside the [place] in Last 30 Days - Family History Known Family History: Positive: Hypertension, Other - noncontributory - Social History Alcohol Use: None Substance Use Type: Reports: Marijuana Smoking Status (MU): Heavy Every Day Tobacco Smoker Type: Cigarettes Amount Used/How Often: 1-2 cigarettes/day Have You Smoked in the Last Year: Yes Review of Systems Positive: Chills. Negative: Fever Positive: Abdominal Pain, Diarrhea, Nausea, Other - positive: lack of appetite Genitourinary: Negative - vaginal bleeding, spotting All Other Systems Reviewed And Are Negative: Yes Physical Exam - Summary Physical Exam Summary: GENERAL: Patient is a well-developed and nourished F who is lying comfortable in the stretcher. Patient is not in any acute respiratory distress. HEAD AND FACE: Normocephalic EYES: PERRLA, EOMI x 2. EARS: Hearing grossly intact. MOUTH: Oropharynx within normal limits. NECK: Supple, trachea is midline, no adenopathy, no JVD, no carotid bruit. CHEST: Symmetric, no tenderness at palpation LUNGS: Clear to auscultation bilaterally. No wheezing or crackles. CVS: Regular rate and rhythm, S1 and S2 present, no murmurs or gallops appreciated. ABDOMEN: TTP in RLQ, no rebound, no guarding. Bowel sounds are normal. No abnormal abdominal pulsations. EXTREMITIES: Full ROM in all major joints, no edema, no cyanosis or clubbing. NEURO: Alert and oriented x 3. No acute neurological deficits. Speech is normal and follows commands. SKIN: Dry and warm : patient refused. Triage Information Reviewed: Yes Vital Signs On Initial Exam: Initial Vitals Temp Pulse Resp BP Pulse Ox 97.8 F 81 16 173/102 100 02/21/19 08:31 02/21/19 08:31 02/21/19 08:31 02/21/19 08:31 02/21/19 08:31 Vital Signs Reviewed: Yes Diagnostics - Vital Signs Vital Signs Temp Pulse Resp BP Pulse Ox 02/21/19 08:49 75 100 02/21/19 08:31 97.8 F 81 16 173/102 100 - Laboratory Result Diagrams: 02/21/19 09:13 02/21/19 09:13 Lab Statement: Any lab studies that have been ordered have been reviewed, and results considered in the medical decision making process. - CT abdomen/pelvis CT Interpretation Completed By: Radiologist Summary of CT Findings: No abdominal pelvic acute pathologic process evident. Normal appendix documented. Negative for obstructive uropathy. Punctate 1 mm nonobstructing stone midpole LEFT. kidney appears new. ED physician has reviewed this imaging report. - Ultrasound No standard instances Ultrasound Interpretation Completed By: Radiologist Summary of Ultrasound Findings: Pelvis ultrasound impression: Negative pelvic ultrasound. ED physician has reviewed this imaging reprot. Re-Evaluation - Re-Evaluation First Eval Re-Evaluation Time: 12:19 Change: Unchanged Comment: Pt still reports pain. Abdominal Pain Fem Course/Dx - Course Course Of Treatment: A 28 y/o female presents to [facility] with a chief complaint of RLQ pain since 17:00 02/21/19. The physical exam revealed TTP in RLQ, no rebound, no guarding. In the ED course the patient was given 4mg IV Morphine, 4mg IV Zofran and Sodium Chloride IV. Bloodwork, chemistries and urines obtained. WBC 10.9 at 09:13. CT abdomen/pelvis impression: No abdominal pelvic acute pathologic process evident. Normal appendix documented. Negative for obstructive uropathy. Punctate 1 mm nonobstructing stone midpole LEFT. kidney appears new. Pelvis ultrasound impression: Negative pelvic ultrasound. The patient refused a pelvic exam. The patient will be discharged home. I discussed results with patient, and she reports feeling better. She is hemodynamically stable and safe for discharge. Strict return precautions given and she will otherwise follow up with her PCP. - Diagnoses Provider Diagnoses: Abdominal pain Discharge - Sign-Out/Discharge Documenting (check all that apply): Patient Departure - DC Patient Received Moderate/Deep Sedation with Procedure: No - Discharge Plan Condition: Stable Disposition: HOME Patient Education Materials: Abdominal Pain (ED) Referrals: Foster Anderson PA [Primary Care Provider] - (1-3 days) Additional Instructions: Follow up with your primary care physician in 1-3 days. RETURN TO THE EMERGENCY DEPARTMENT FOR CHANGING OR WORSENING SYMPTOMS. - Billing Disposition and Condition Condition: STABLE Disposition: Home - Attestation Statements Document Initiated by Gordonibsunday: Yes Documenting Scribe: Van Palmer Provider For Whom Luis is Documenting (Include Credential): Shirley Noguera MD Scribe Attestation: I, gordon Roblesibed for Shirley Noguera MD on 02/21/19 at 1807. Scribe Documentation Reviewed: Yes Provider Attestation: The documentation as recorded by the Van medina accurately reflects the service I personally performed and the decisions made by me, Nicko Noguera MD Status of Scribe Document: Viewed
[2019-02-21 09:26] LABS: ABS Lymphocytes 2.6 10^3/ul (1.0-4.8); ABS Monocytes 0.8 10^3/ul (0-0.8); ABS Neutrophils 7.5 10^3/ul (1.5-7.7); Eosinophil % 0.3 %; Hematocrit 45 % (35-47); Hemoglobin 15.3 g/dL (12.0-16.0); Lymphocyte % 23.5 %; Mean Corpuscular HGB Conc 34 g/dL (31-36); Mean Corpuscular Hemoglobin 31 pg (27-31); Mean Corpuscular Volume 90 fL (80-97); Mean Platelet Volume 8.3 fL (7.4-10.4); Nucleated Red Blood Cells % 0.1; Platelet Count 292 10^3/uL (150-450); Red Blood Count 4.98 10^6 /uL (3.70-4.87); Red Cell Distribution Width 15 % (10-15); White Blood Count 10.9 10^3/uL (3.5-10.8)
[2019-02-21 09:37] LABS: ALT 21 U/L (7-52); AST 19 U/L (13-39); Albumin 4.2 g/dL (3.2-5.2); Albumin/Globulin Ratio 1.8 (1-3); Alkaline Phosphatase 37 U/L (34-104); Anion Gap 5 mmol/L (2-11); BUN/Creatinine Ratio 17.4 (8-20); Blood Urea Nitrogen 12 mg/dL (6-24); C Reactive Protein 2.33 mg/L (<8.01); CO2 Carbon Dioxide 25 mmol/L (22-32); Calcium 9.5 mg/dL (8.6-10.3); Chloride 108 mmol/L (101-111); EGFR African American 122.6 (>60); EGFR Non-African American 101.3 (>60); Globulin 2.4 g/dL (2-4); Glucose 112 mg/dL (70-100); Potassium 4.1 mmol/L (3.5-5.0); Sodium 138 mmol/L (135-145); Total Protein 6.6 g/dL (6.4-8.9)
[2019-02-21 09:44] LABS: HCG Pregnancy < 0.60 mIU/mL
[2019-02-21 10:31] LABS: Urine Appearance Clear; Urine Bilirubin Negative (Negative); Urine Blood Negative (Negative); Urine Color Straw; Urine Glucose Negative (Negative); Urine Ketones Negative (Negative); Urine Nitrite Negative (Negative); Urine Protein Negative (Negative); Urine Specific Gravity 1.005 (1.010-1.030); Urine Urobilinogen Negative (Negative)
[2019-02-21 10:46] VITALS: BP 152/86
[2019-02-21] MEDS ORDERED: Ketorolac INJ* 30 MG/ML 1 ML VIAL IV PUSH ONE (12:19)
== END 2019-02-21 12:50 | disposition home or self-care (01) ==
LOC: ED 08:30
DX: R10.31 Right lower quadrant pain (principal); R10.2 Pelvic and perineal pain; N20.0 Calculus of kidney; Z87.442 Personal history of urinary calculi; R11.0 Nausea; R19.7 Diarrhea, unspecified; R68.83 Chills (without fever); M54.9 Dorsalgia, unspecified; F17.210 Nicotine dependence, cigarettes, uncomplicated
CPT/HCPCS: 36415; 74176; 76856; 80053; 81003; 83605; 83690; 84702; 85025; 86140; 96361; 96374; 96375; 99282; J1885; J2270; J2405